=== PATIENT | female | born 1990 | race Caucasian/White ===

== ENCOUNTER → 2019-09-28 | Outpatient (REF) | payer OTHER | LOC: M LAB REF 15:37 | PROVIDERS: ATTEND Nurse Practitioner Family | DX: R30.0 Dysuria (principal) ==

== ENCOUNTER → 2020-01-05 | Outpatient (REF) | payer OTHER | LOC: M LAB REF 15:17 | PROVIDERS: ATTEND Family Medicine | DX: Z12.4 Encounter for screening for malignant neoplasm of cervix (principal); R87.610 Atypical squamous cells of undetermined significance on cytologic smear of cervix (ASC-US) | CPT/HCPCS: 87624; G0123 ==

== ENCOUNTER → 2020-11-22 | Outpatient (REF) | payer OTHER | LOC: M LAB REF 17:51 | PROVIDERS: ATTEND Nurse Practitioner Family | DX: Z01.419 Encounter for gynecological examination (general) (routine) without abnormal findings (principal) ==

== ENCOUNTER → 2020-12-18 | Outpatient (REF) | payer OTHER | LOC: M SFHCWAGY 19:26 | PROVIDERS: ATTEND Obstetrics & Gynecology | DX: R87.612 Low grade squamous intraepithelial lesion on cytologic smear of cervix (LGSIL) (principal) ==

== ENCOUNTER → 2021-02-12 | Outpatient (CLI) | payer BC, OTHER ==
[~2021-02-12] MED LIST: VENTAER INH
== END ==
LOC: M LABSMTC 09:06
PROVIDERS: ATTEND Anesthesiology
DX: Z01.818 Encounter for other preprocedural examination (principal); Z11.52 Encounter for screening for COVID-19

== ENCOUNTER 2021-02-14 06:06 | Day surgery (SDC) | payer BC, OTHER ==
[~2021-02-14] VITALS: Ht 154.9 cm; Wt 81.2 kg
[~2021-02-14 06:06] MED LIST changes: +LR 1,000 ML IV ONE
[2021-02-14 06:46] LABS: HEMATOCRIT 42.2 % (36.0-47.0); HEMOGLOBIN 13.9 g/dl (12.0-15.5); MEAN CORPUSCULAR HEMOGLOBIN 28.5 pg (27.0-33.0); MEAN CORPUSCULAR HGB CONC 32.9 g/dl (32.0-36.5); MEAN CORPUSCULAR VOLUME 86.7 fl (80.0-96.0); PLATELET COUNT, AUTOMATED 257 10^3/uL (150-450); RED BLOOD COUNT 4.87 10^6/uL (4.00-5.40); WHITE BLOOD COUNT 7.5 10^3/uL (4.0-10.0)
[2021-02-14] MEDS ORDERED: propofoL 200 MG/20 ML VIAL As Ordered ONE (07:01)
[2021-02-14] MEDS ORDERED: KETOROLAC 60MG 2ML VIAL As Ordered ONE (07:01)
[2021-02-14] MEDS ORDERED: fentaNYL 100 MCG/2 ML INJECTION (J3010) As Ordered ONE (07:01)
[2021-02-14] MEDS ORDERED: MIDAZOLAM INJ 2MG/2ML VIAL (J2250 PER 1MG) As Ordered ONE (07:01)
[2021-02-14] MEDS ORDERED: dexameTHASONE 4 MG/ML 1ML VIAL (J1100 PER 1MG) As Ordered ONE (07:01)
[2021-02-14] MEDS ORDERED: ONDANSETRON 4MG/2ML VIAL As Ordered ONE (07:01)
[2021-02-14] MEDS ORDERED: LIDOCAINE 2% 100MG/5ML SDV (FOR ANES.) As Ordered ONE (07:01)
[2021-02-14] MEDS ORDERED: IODINE STRONG SOLN 15 ML BTL As Ordered ONE (07:08)
[2021-02-14] MEDS ORDERED: SILVER NITRATE APPLICATOR As Ordered ONE (07:08)
[2021-02-14] MEDS ORDERED: LIDOCAINE W/EPINEPHRINE 1% 20ML VIAL As Ordered ONE (07:09)
[2021-02-14] MEDS ORDERED: LEVONORGESTREL 52MG (MIRENA) IUD As Ordered ONE (07:12)
[2021-02-14 07:18] LABS: HCG, SERUM QUALITATIVE NEGATIVE (NEGATIVE)
[2021-02-14] MEDS ORDERED: LR 1,000 ML IV SCH ×2 (08:40→08:45)
[2021-02-14] MEDS ORDERED: ONDANSETRON 4MG/2ML VIAL IV PRN (08:40)
[2021-02-14] MEDS ORDERED: fentaNYL 100 MCG/2 ML INJECTION (J3010) IV PRN (08:40)
[2021-02-14] MEDS ORDERED: oxyCODONE 5MG TAB PO PRN (08:40)
--- NOTE | 2021-02-14 08:46 | ROOPDOC ---
[facility] Report Of Operation Report of Operation DATE OF OPERATION: 02/14/2021 PREOPERATIVE DIAGNOSIS: Cervical intraepithelial neoplasia, III. Desires Mirena intrauterine device for control. POSTOPERATIVE DIAGNOSIS: Same PROCEDURE PERFORMED: Loop electrosurgical excision procedure (LEEP) and insertion of Mirena intrauterine device SURGEON: Rachel Keith DO HEMP FIBER TAKER OFF: None. ANESTHESIA: General with LMA and with local anesthesia/paracervical block. SPECIMEN(S) SENT TO PATHOLOGY: Cervix with entire squamocolumnar junction and tagged at 12:00 with silk suture. ESTIMATED BLOOD LOSS: 5 mL. FLUIDS PLACED: 1000 mL. DRAINS: In and out catheter, 250 mL. COMPLICATIONS: None. ANTIBIOTICS: None indicated. INTRAOPERATIVE FINDINGS: Nulliparous cervix, transformation zone not well seen INDICATIONS: ELISE-3 at 9:00 via colposcopic guided cervical biopsy in office. DESCRIPTION OF PROCEDURE: The patient was counseled and consented on the risks, benefits, indications, and alternatives of the procedure. Informed consent was obtained. She was taken to the operating room with an IV running in placed on the operating table and then dorsal supine position. Anesthesia was found to be adequate. She was placed in the high lithotomy position. She was prepared and draped in normal sterile fashion. Time-out was performed per protocol. The bladder was drained with sterile in and out catheter. A coated Graves speculum was placed into the vagina with good visualization of the cervix. Paracervical block was performed for postoperative comfort. The cervix was coated with Lugol's solution to delineate the squamocolumnar junction. The size 20 mm x 10 mm loop was used to excise the cervix at the level of the squamocolumnar junction. The remaining raw cervix was cauterized with a roller ball cautery. Excellent hemostasis was noted. The uterus was sounded with an endometrial biopsy [place], and sounded to 8 cm. The Mirena IUD was inserted without any difficulty and the strings were cut 2 cm from the external os. Monsel solution was applied over the cervix to ensure hemostasis. All instruments were removed from the vagina. Sponge, needle, and instrument counts were correct per protocol. The patient tolerated the entire procedure very well. She was transferred to the PACU in good and stable condition. RACHEL KEITH DO Feb 14, 2021 08:45
[2021-02-14 09:38] VITALS: BP 138/73
== END 2021-02-14 10:12 | disposition home or self-care (01) ==
LOC: M SDC 06:06 → EDSTATUS 07:30 → M SDC 10:12
PROVIDERS: ATTEND Obstetrics & Gynecology
DX: N87.0 Mild cervical dysplasia (principal); R87.810 Cervical high risk human papillomavirus (HPV) DNA test positive; Z30.430 Encounter for insertion of intrauterine contraceptive device; J45.909 Unspecified asthma, uncomplicated
CPT/HCPCS: 36415; 57522; 58300; 64435; 84703; 85027; 86850; 86900; 86901; 88307; J1100; J1885; J2250; J2405; J3010; J7298

== ENCOUNTER → 2022-02-08 | Outpatient (REF) | payer BC, OTHER ==
[~2022-02-08] MED LIST changes: -LR 1,000 ML IV ONE
== END ==
LOC: M LAB REF 13:23
PROVIDERS: ATTEND Nurse Practitioner Family
DX: Z01.419 Encounter for gynecological examination (general) (routine) without abnormal findings (principal)
CPT/HCPCS: 87624; G0123

== ENCOUNTER → 2023-04-23 | Outpatient (REF) | payer BC, OTHER | LOC: M LAB REF 16:51 | PROVIDERS: ATTEND Registered Nurse | DX: R30.0 Dysuria (principal); R31.9 Hematuria, unspecified ==